=== PATIENT | male | born 1945 | race African-American/Black ===

== ENCOUNTER 2018-09-01 14:12 | Observation (INO) ==
[2018-09-01] MEDS ORDERED: GLUCAGON 1 MG VIAL IM PRN ×2 (16:43→17:08)
[2018-09-01] MEDS ORDERED: DEXTROSE 50% 25 GM/50 ML VIAL IV PRN ×2 (16:43→17:08)
[2018-09-01] MEDS ORDERED: ONDANSETRON 4 MG/2 ML VIAL IV PRN (17:04)
[2018-09-01] MEDS ORDERED: ACETAMINOPHEN 325 MG TABLET PO PRN (17:04)
[2018-09-01] MEDS: SODIUM CHLORIDE 0.9% 1,000 ML IV SCH (17:17)
[2018-09-01] MEDS: ENOXAPARIN 30 MG/0.3 ML SYRINGE SUBCUT SCH (17:51)
[2018-09-01 18:04] LABS: Basophils % 0.4 % (0.0-0.8); Eosinophils # 0.2 10*3/uL (0.0-0.87); Eosinophils % 1.6 % (0.00-10.9); Hematocrit 32.8 VOL% (42.0-52.0); Hemoglobin 10.8 GM/DL (14.0-18.0); Immature Granulocytes % 0.3 %; Immature Granulocytes Absolute 0.03 #; Lymphocytes # 3.8 10*3/uL (1.4-4.0); Lymphocytes % 37.7 % (21.2-54.2); Mean Corpuscular HGB Conc 32.9 GM/DL (32-36); Mean Corpuscular Volume 79.2 FL (87-102); Mean Platelet Volume 10.9 FL (9.6-12.0); Monocytes % 4.1 % (1.7-12.7); Neutrophils % 55.9 % (38.7-73.9); Platelet Count 161 T/CUMM (130-400); Red Blood Count 4.14 MC/CUMM (3.8-5.5); Red Cell Distribution Width 14.9 % (9.3-17.3)
[2018-09-01 18:35] LABS: Alanine Aminotransferase 12 U/L (16-61); Albumin 3.4 G/DL (3.4-5.0); Alkaline Phosphatase 67 U/L (45-117); Aspartate Amino Transferase 8 U/L (0-37); Bilirubin,Total < 0.39 MG/DL (0.2-1.0); Blood Urea Nitrogen 30 MG/DL (7-18); Calcium 8.8 MG/DL (8.5-10.1); Glucose 177 MG/DL (74-106); HDL Cholesterol 39 MG/DL (40-60); Osmolality,Calculated 284.7 MOS/KG (273-304); Risk Ratio 4.28; Thyroid Stimulating Hormone 0.832 uIU/ml (0.358-3.74); Total Protein 7.9 G/DL (6.4-8.3); Triglycerides 178 MG/DL (2-150); VLDL CHOLESTEROL 35.6 MG/DL
[2018-09-01] MEDS: INSULIN REGULAR 100 UNIT/ML SUBCUT SCH (20:05)
[2018-09-01] MEDS ORDERED: MAGNESIUM SULF RIDER 2 GM in PREMIX 1 EACH IV ONE (20:56)
[2018-09-01 21:46] LABS: Troponin I < 0.015 NG/ML (0.00-0.045)
[2018-09-01 23:05] LABS: Apearance,Urine CLEAR (Clear); Bilirubin,Urine Negative (Negative); Blood, Urine Negative (Negative); Glucose,Urine (UA) >=500 mg/dL (Negative); Hyaline Casts,Urine 48 /LPF (0-3); Ketones,Urine Negative (Negative); Mucus,Urine Occasional /LPF (Occasional); Nitrite,Urine Negative (Negative); Protein,Urine 30 MG/DL; RBC,Urine 1 /HPF (0-4); Urine Color Yellow (Yellow); Urine Specific Gravity 1.012 (1.001-1.035); Urine Urobilinogen < 2.0 EU/DL (0.2-1.0); WBC,Urine 1 /HPF (0-6)
[2018-09-02] MEDS: SODIUM CHLORIDE 0.9% 1,000 ML IV SCH ×2 (04:19→15:30)
[2018-09-02 05:26] LABS: Basophils % 0.4 % (0.0-0.8); Eosinophils # 0.1 10*3/uL (0.0-0.87); Eosinophils % 1.5 % (0.00-10.9); Hemoglobin 9.3 GM/DL (14.0-18.0); Immature Granulocytes % 0.3 %; Immature Granulocytes Absolute 0.03 #; Lymphocytes # 3.7 10*3/uL (1.4-4.0); Lymphocytes % 41.6 % (21.2-54.2); Mean Corpuscular HGB Conc 33.2 GM/DL (32-36); Mean Corpuscular Volume 79.1 FL (87-102); Mean Platelet Volume 10.9 FL (9.6-12.0); Monocytes % 3.7 % (1.7-12.7); Neutrophils % 52.5 % (38.7-73.9); Platelet Count 135 T/CUMM (130-400); Red Blood Count 3.54 MC/CUMM (3.8-5.5); Red Cell Distribution Width 14.8 % (9.3-17.3); White Blood Count 8.9 T/CUMM (4-12)
[2018-09-02 05:59] LABS: Calcium 8.4 MG/DL (8.5-10.1); Osmolality,Calculated 292.4 MOS/KG (273-304)
[2018-09-02] MEDS: PANTOPRAZOLE 40 MG TABLET PO SCH (08:30)
[2018-09-02] MEDS: ATORVASTATIN 20 MG TABLET PO SCH (08:30)
[2018-09-02] MEDS: INSULIN REGULAR 100 UNIT/ML SUBCUT SCH ×4 (08:31→21:07)
[2018-09-02] MEDS ORDERED: ATENOLOL 25 MG TABLET PO SCH (09:00)
[2018-09-02] MEDS: ENOXAPARIN 30 MG/0.3 ML SYRINGE SUBCUT SCH (17:15)
[2018-09-03 05:36] LABS: Calcium 8.6 MG/DL (8.5-10.1); Osmolality,Calculated 288.1 MOS/KG (273-304)
[2018-09-03 05:37] LABS: Basophils % 0.5 % (0.0-0.8); Eosinophils # 0.2 10*3/uL (0.0-0.87); Eosinophils % 2.3 % (0.00-10.9); Hematocrit 31.8 VOL% (42.0-52.0); Hemoglobin 10.4 GM/DL (14.0-18.0); Immature Granulocytes % 0.3 %; Immature Granulocytes Absolute 0.03 #; Lymphocytes # 3.7 10*3/uL (1.4-4.0); Lymphocytes % 42.5 % (21.2-54.2); Mean Corpuscular HGB Conc 32.7 GM/DL (32-36); Mean Corpuscular Volume 80.1 FL (87-102); Mean Platelet Volume 11.6 FL (9.6-12.0); Neutrophils % 51.4 % (38.7-73.9); Platelet Count 162 T/CUMM (130-400); Red Blood Count 3.97 MC/CUMM (3.8-5.5); Red Cell Distribution Width 15.1 % (9.3-17.3); White Blood Count 8.6 T/CUMM (4-12)
[2018-09-03] MEDS: ATORVASTATIN 20 MG TABLET PO SCH (08:21)
[2018-09-03] MEDS: INSULIN REGULAR 100 UNIT/ML SUBCUT SCH (08:21)
[2018-09-03] MEDS: PANTOPRAZOLE 40 MG TABLET PO SCH (08:21)
[2018-09-03 09:17] VITALS: BP 146/65
== END 2018-09-03 10:45 | disposition home or self-care (01) ==
LOC: N.5E → SUATTDRO 16:03
PROVIDERS: ADMIT Internal Medicine; ATTEND Internal Medicine